=== PATIENT | male | born 1980 | race Caucasian/White ===

== ENCOUNTER → 2017-05-22 | Outpatient (CLI) | payer OTHER ==
--- NOTE | 2017-05-23 07:48 | USB ---
Reason for exam: clinical finding. Indicated problem(s): lump or thickening in the right breast. Physical Findings: Nurse Summary: Patient complains of right breast lump x 1 month, non-tender, movable (nurse mj). US Breast RT Right breast ultrasound demonstrates a 2.1 x 0.9cm solid, mixed lesion at the posterior nipple. These results were verbally communicated with the patient and result sheet given to the patient on 05/22/17. ASSESSMENT: Suspicious, BI-RAD 4 RECOMMENDATION: Surgical consultation and ultrasound core biopsy of the right breast. Called with mammographic findings and has scheduled an appointment for the patient for 05/24/17 at 8:[address] Hall. PRELIMINARY REPORT CALLED AND FAXED TO DR. HALL ON 05/22/17 /TMP.
== END | disposition home or self-care (01) ==
LOC: RADUSWWP 05-05 14:41
PROVIDERS: ATTEND Family Medicine
DX: R92.8 Other abnormal and inconclusive findings on diagnostic imaging of breast (principal); R22.2 Localized swelling, mass and lump, trunk

== ENCOUNTER → 2017-06-07 | Day surgery (SDC) | payer OTHER ==
[2017-06-07 12:19] VITALS: RESP 16; BMI 37.0
[2017-06-07 13:19] VITALS: BP 126/68; PULSE 59; TEMP 98
--- NOTE | 2017-06-07 13:46 | USB ---
EXAMINATION TYPE: US biopsy breast VAD RT DATE OF EXAM: 06/07/2017 CLINICAL HISTORY: N63 Lump/mass. TECHNIQUE: Ultrasound guided core biopsy of right breast. COMPARISON: Ultrasound 05/22/2017 FINDINGS: The procedure of ultrasound guided core biopsy was explained to the patient. Benefits, alt ernatives, and risks were discussed. An informed consent was then obtained. The patient was placed in supine positioning for imaging and for the procedure. The overlying skin w as prepped and draped in usual sterile fashion. Lidocaine buffered with bicarbonate was used as anes thetic into the skin and subcutaneous tissue up to area of concern in the right breast. A sri was m willam with surgical scalpel. Under ultrasound guidance, a 12-gauge vacuum assisted biopsy gun device was used to obtain 6 core michael ples. The more superficial portion of this lesion remained visible on ultrasound and a clip was not p laced. The patient tolerated the procedure well without any immediate complication. The patient was kept in the radiology department for short stay after the procedure and then discharged home in stable condi tion. IMPRESSION: 1. Successful ultrasound-guided vacuum-assisted core biopsy right breast retroareolar areolar lesion.
== END ==
LOC: RADUSWWP 11:40
PROVIDERS: ATTEND Surgery
DX: N62 Hypertrophy of breast (principal); N63 Unspecified lump in breast
CPT/HCPCS: 88305; 19083; J2001